=== PATIENT | female | born 1995 | race Caucasian/White ===

== ENCOUNTER → 2017-04-17 | Outpatient (CLI) | payer BC ==
--- NOTE | 2017-04-17 11:17 | KCIC ---
History: Right wrist pain across the carpals for 4 days. Comparison: None. Findings: PA and lateral views of the right wrist. Evaluation for acute traumatic injury is limited by lack of 3rd view. No acute fracture or dislocation is identified. No focal soft tissue swelling is seen. No significant degeneration is identified. Mild ulnar negative variance is identified. Impression: No acute abnormality identified. Electronically signed by: Florencio Cunningham MD (04/17/2017 11:14 AM) [id number]
== END | disposition home or self-care (01) ==
LOC: KCIC 10:21
PROVIDERS: ATTEND Nurse Practitioner Family
DX: M25.531 Pain in right wrist (principal)
CPT/HCPCS: 73100

== ENCOUNTER → 2021-12-24 | Outpatient (CLI) | payer OTHER ==
--- NOTE | 2021-12-24 09:25 | KCIC ---
PQRS Compliance Statement: One or more of the following individualized dose reduction techniques were utilized for this examinat ion: 1. Automated exposure control 2. Adjustment of the mA and/or kV according to patient size 3. Use of iterative reconstruction technique CT abdomen/pelvis without contrast 12/24/2021 8:54 AM INDICATION: Microscopic hematuria. History of kidney stones. Right-sided pain. COMPARISON: None available TECHNIQUE: Multiple axial CT images of the abdomen and pelvis were obtained without intravenous contr ast. Coronal and sagittal reformats are provided. FINDINGS: Visualized portions of the lung bases are clear. Heart size is within normal limits. Evaluation of the solid abdominal viscera is limited by lack of intravenous contrast. No suspicious hepatic masses are identified. Spleen, bilateral adrenal glands, and pancreas are anam l in appearance. Gallbladder is surgically absent. The abdominal aorta is normal in course and caliber. There are no pathologically enlarged lymph nodes in the abdomen and pelvis. There is no abdominal free fluid. There is no free intraperitoneal air. Small and large bowel are normal in caliber. There is no evidence for bowel obstruction. There are no pericolonic inflammatory changes. A normal, nondilated appendix is visualized without adjacent infla mmatory changes. IUD is present. Follicular changes are identified within the right adnexa. Uterus and left adnexa are normal by CT. Urinary bladder is within normal limits given degree of distention. The kidneys are re latively symmetric in appearance. There is no suspicious renal mass within the limitations of a nonco ntrast examination. There is no hydronephrosis. There may be a 1 mm nonobstructing calculus in the in ferior pole the right kidney (series 2, image 45). No suspicious osseous abnormality is identified. IMPRESSION: 1. There may be a 1 mm nonobstructing calculus in inferior pole the right kidney. No findings to sugg est obstructive uropathy. 2. IUD is present. 3. Follicular changes identified within the right adnexa. No significant pelvic free fluid. Electronically signed by: Katelin Rogers MD (12/24/2021 9:22 AM) [id number]
== END ==
LOC: KCIC CT 08:52
PROVIDERS: ATTEND Nurse Practitioner Family
DX: N83.8 Other noninflammatory disorders of ovary, fallopian tube and broad ligament (principal); R31.9 Hematuria, unspecified; Z97.5 Presence of (intrauterine) contraceptive device
CPT/HCPCS: 74176